=== PATIENT | female | born 1995 | race American Indian/Alaskan Native ===

== ENCOUNTER 2019-01-30 08:28 | Outpatient (CLI) | payer BC, OTHER ==
--- NOTE | 2019-01-30 10:34 | Ultrasound Report ---
ULTRASOUND GUIDED NEEDLE CORE BIOPSY LEFT BREAST WITH CLIP PLACEMENT: 01/30/19 CLINICAL: Left breast mass. COMPARISON :[facility] 12/16/18 FINDINGS: The procedure was explained to the patient and informed consent was obtained. Ultrasound demonstrated a solid hypoechoic mass at 12 o'clock 6 cm from the nipple. It has a lobular margin and measures 2.0 x 1.2 x 0.8 cm.. I marked the breast with a felt tip marker and a time out was called. The skin was prepped with Betadine and anesthetized with 1% lidocaine. Needle core biopsy of the mass was performed through a tiny dermatotomy using ultrasound guidance, 2% lidocaine with epinephrine for deep anesthesia and a 14-gauge Achieve biopsy device. 4 cores were obtained and placed in formalin. A clip was deployed within the mass. The patient tolerated the procedure well and there were no apparent complications. Hemostasis was achieved with minimal pressure and a sterile dressing was applied. A two view mammogram demonstrated satisfactory clip deployment within the mass. She left the department in good condition and was given instructions for wound care and followup. IMPRESSION: Uncomplicated ultrasound guided needle core biopsy with clip placement left breast.
--- NOTE | 2019-01-30 10:41 | Mammography Report ---
LEFT DIGITAL DIAGNOSTIC MAMMOGRAM: 01/30/19 08:28:00 CLINICAL: For clip placement immediately status post ultrasound biopsy. COMPARISON:None. FINDINGS: A biopsy clip is now identified in the upper outer quadrant within a mobile partially circumscribed mass measuring approximately 2 cm. IMPRESSION: Concordant clip placement status post ultrasound biopsy. BI-RADS CATEGORY: 4--Suspicious Pathology pending.
== END 2019-01-30 08:29 | disposition home or self-care (01) ==
LOC: SPVWC 08:28
PROVIDERS: ATTEND Surgery
DX: D24.2 Benign neoplasm of left breast (principal); R92.0 Mammographic microcalcification found on diagnostic imaging of breast
CPT/HCPCS: 88305; 88342